=== PATIENT | female | born 1950 ===

== ENCOUNTER 2016-04-06 05:46 | Day surgery (SDC) | payer MEDICARE, OTHER ==
[~2016-04-06] VITALS: Ht 160 cm; Wt 77.8 kg
[~2016-04-06 05:46] MED LIST: Lactated Ringer's 1,000 ML IV ONE; MULT-1018 PO; melatonin
[2016-04-06] MEDS ORDERED: Propofol 10,000 mCg/mL 20 mL Inj ONE (05:47)
[2016-04-06] MEDS ORDERED: Dexamethasone 4 mg/mL Inj ONE (05:47)
[2016-04-06] MEDS ORDERED: Ondansetron 2 mg/mL 2 mL Inj ONE (05:47)
[2016-04-06] MEDS ORDERED: fentaNYL-PF 50 mCg/mL 2 mL Inj ONE (05:47)
[2016-04-06] MEDS ORDERED: IBUP200C PO (05:59)
[2016-04-06] MEDS ORDERED: Vancomycin Inj 1,000 MG in IV Premix 1 EACH IV ONE (06:00)
[2016-04-06] MEDS ORDERED: CeFAZolin Inj 2 GM in IV Premix 1 EACH IV ONE (06:00)
[2016-04-06 06:15] VITALS: BP 139/68; PULSE 74; RESP 18; O2SAT 97
[2016-04-06] MEDS ORDERED: Lactated Ringer's 1,000 ML IV SCH (07:22)
[2016-04-06] MEDS ORDERED: Lactated Ringer's 500 ML IV PRN (07:22)
--- NOTE | 2016-04-06 07:22 | PCM.HPANE ---
Patient Data Date of Service: Apr 06, 2016 (0720) Surgeon Admitting Provider: Attending Provider:Ricky Hernández DO Primary Care Physician:Jackie Winn Other Provider:Heydi Barrientos Anesthesia Reason for Visit Right Knee Arthritis Ht/WT & BMI Height (Feet): 5 Height (Inches): 3.00 Weight (Kilograms): 77.8 Body Mass Index 30.00 Allergies Coded Allergies: Penicillins (Verified Allergy, Unknown, rash, 04/01/16) Sulfa (Sulfonamide Antibiotics) (Verified Allergy, Unknown, rash, 04/01/16) ciprofloxacin (Verified Allergy, Unknown, rash, 04/01/16) Past Anesthesia History Anesthesia History: Denies:: Abnormal Airway, Anesthesia Reactions, Difficult Intubation, Fam Anesthesia Reaction Diabetes History Hx Diabetes?: No MRSA MRSA: No Medications Hypertension Medication: No Home Meds Incl Beta Brigido: No Date Beta Brigido Taken: Reported Medications Ibuprofen 200 Mg [id number] Mg PO QID PRN For Pain Ref 2 04/06/16 [melatonin] No Conflict CheckUnknown Dose DAILY 04/01/16 Multivitamin (Multi Vitamin Daily)1 Each Tablet1 Each PO DAILY 30 Days Ref 0 04/01/16 History History of ENT Problems?: Yes HEENT History: Positive for:: Sinus Problem (seasonal, environmental allergies ) Denies:: Abnormal Airway Cataracts Difficult Intubation Dysphagia Glaucoma Hearing Problem TMJ Hx of Heart Problems?: No Cardiovascular History: Denies:: AICD Abdominal Aortic Aneurism Atrial Fibrillation Cardiac Surgery Chest Pain Congestive Heart Failure Coronary Artery Disease Edema Heart Murmur Hypertension Irregular Heartbeat Pacemaker Valvular Heart Disease Hx of Respiratory Problem?: No Respiratory History: Denies:: Asthma COPD Cough Emphysema Hemoptysis Oxygen Administration Pneumonia Tuberculosis Use of C-PAP Machine Use of Inhalers / NEBS Hx Neurologic Problems?: No Neurological History: Denies:: Alzheimer's Disease CVA Dementia Dizziness Headaches Multiple Sclerosis Parkinson's Disease Seizures Hx of GI Problems?: No Gastrointestinal History: Denies:: Cirrhosis Diverticulitis Gall Bladder Disease Gastroesphageal Reflux Gastrointestinal Bleeding Heartburn Hepatitis Hiatal Hernia Liver Disease Rectal Bleeding Hx of Problems?: No Genitourinary History: Denies:: Kidney Stones Urinary Tract Infection Female Hx: Denies:: Currently Problems with Breasts? Skin History: Denies:: History Skin Disorders? Pressure Ulcers Hx Musculoskeletal Problems?: Yes Musculoskeletal History: Positive for:: Musculoskeletal Trauma (right knee current admission problem) Osteoarthritis Denies:: Back Injury Fibromyalgia Joint Replacement Systemic Lupus Hx of Psycho/Social Problems?: No Psycho Social History: Denies:: Anxiety Hx Depression Hx Surgeries?: Yes (bilateral bunion) Hx Any Other Health Problems?: Yes Other History: Denies:: Cancer Thyroid Disease History Blood Transfusions: Positive for:: Accept Blood Products? Denies:: Blood Transfusions Hx Diabetes: No Hx Alcohol Use: NoHx Substance Use: NoHave You Smoked inLast 12 mo: No Stop/Bang S-Snoring: Do You Snore Loudly: No T-Tired: feel tired, fatigued: Yes O-Obsered: Observed not breath: No P-Blood Pressure: treated: No B- Body Mass Index > 35 kg/m2: No A- Age over 50: Yes N- Neck Large Circumference: No G- Gender Male: No CRISTIAN Total Score: 2 CRISTIAN Risk Assessment: Low Risk, <3 Yes Risk Assessment Category Category 1A: Patient has history of documented sleep apnea, and HAS NOT received any narcotic, sedative or anesthesia administration during this stay. Category 1B: Patient has history of documented sleep apnea, and HAS received any narcotic , sedative or anesthesia administration during this stay Category 2: Patient has SUSPECTED Obstructive Sleep Apnea, and HAS received any narcotic , sedative or anesthesia administration during this stay. Category 3: Patient has SUSPECTED Obstructive Sleep Apnea and HAS NOT received narcotic, sedative or anesthesia administration during this stay. Category 4: Outpatient in Procedural Areas with known sleep apnea or who screen positive for High Risk via the STOP/BANG questionnaire. Exam Exam Vital Signs Vital Signs Date Time Temp Pulse Resp B/P Pulse Ox O2 Delivery O2 Flow Rate FiO2 04/06/16 06:15 36.1 74 18 139/68 97 Room Air General Appearance: Alert, Oriented X3 HEENT/AIRWAY: MP 2 Lungs: Clear to Auscultation Heart: Exam Unremarkable Meds/Labs/Diagnostics Admission Meds Current Medications Vancomycin/0.9 % Sod Chloride 1000 mg/Premix 200 ml @ 133.333 mls/hr ONCE ONCE IV Last administered on 04/06/16t 06:15; Start 04/06/16 at 06:00; Stop at 07:29 Lactated Ringer's (Lr) 1,000 ml @ 120 mls/hr Q8H20M ONCE IV Last administered on 04/06/16t 05:55; Start 04/06/16 at 05:00; Stop 04/06/16 at 13:19 Plan Impression Patient chart reviewed, patient interviewed and anesthestic plan with risks, benefits, and alternatives discussed, and informed consent obtained. NPO Status: tea at 7pm ASA Physical Status: ASA2 Mod Systemic Disease Anesthetic Plan: GA Bene/Risks/Altern/Consents: Yes HP Complete Prior to Induction: Yes Shiv Sun MD Apr 06, 2016 07:22
[2016-04-06] MEDS ORDERED: Phenylephrine 10,000 mCg/mL Inj IVPUSH PRN (07:25)
[2016-04-06] MEDS ORDERED: EPHEDrine Sulfate 50 mg/mL Inj IVPUSH PRN (07:25)
[2016-04-06] MEDS ORDERED: MetoCLOpramide 5 mg/mL 2 mL Inj IVPUSH PRN (07:25)
[2016-04-06] MEDS ORDERED: Dexamethasone 4 mg/mL Inj IVPUSH PRN (07:25)
[2016-04-06] MEDS ORDERED: Ondansetron 2 mg/mL 2 mL Inj IVPUSH PRN (07:25)
[2016-04-06] MEDS ORDERED: Bupivacaine Liposome 1.3% 20 mL Inj ONE (08:01)
[2016-04-06] MEDS ORDERED: Lactated Ringer's 1,000 ML IV ONE (08:45)
[2016-04-06] MEDS ORDERED: Ropivacaine-PF 0.5% 30 mL Inj ARTICULAR ONE (08:58)
[2016-04-06] MEDS ORDERED: Bupivacaine Liposome 1.3% 20 mL Inj INFILTRATE ONE (09:51)
[2016-04-06 10:13] VITALS: BP 120/92; PULSE 74; RESP 8; O2SAT 100
--- NOTE | 2016-04-06 10:14 | PCM.ANEP1 ---
Post Anesthesia Phase 1 PACU Phase 1 Assessment Date of Service: Apr 06, 2016 (0720) Vital Signs 120/92, 78, 100%, 16, 36.6 Vital Signs Date Time Temp Pulse Resp B/P Pulse Ox O2 Delivery O2 Flow Rate FiO2 04/06/16 06:15 36.1 74 18 139/68 97 Room Air Anesthetic Administered: GA Level of Alertness: Awake, talking MCLAIN's with Equal Strength: Yes Pain: No Nausea or Vomiting: No Oxygen Delivery: Simple Mask Lungs: Clear to Auscultation Dermatome Level: Full Sensation Summary uneventful GA Shiv Sun MD Apr 06, 2016 10:13
--- NOTE | 2016-04-06 10:14 | PCM.ANEP2 ---
Post Anesthesia Evaluation ASA/CMS Post Anesthesia VS in Patient's Normal Range?: Yes Resp Stable; Airway Patent?: Yes CV Function & Hydration Stable: Yes Mental Status Recovered?: Yes Pain control Satisfactory?: Yes N/V Control Satisfactory?: Yes Shiv Sun MD Apr 06, 2016 10:14
[2016-04-06 10:20] VITALS: BP 120/73; PULSE 76; RESP 8; O2SAT 100
[2016-04-06 10:25] VITALS: BP 112/66; PULSE 68; RESP 8; O2SAT 100
[2016-04-06] MEDS ORDERED: Acetaminophen IV 1,000 MG in IV Premix 1 EACH IV PRN (10:25)
[2016-04-06] MEDS ORDERED: hydrOXYzine Pamoate 25 mg Capsule PO PRN (10:25)
[2016-04-06] MEDS ORDERED: Ketorolac 15 mg/mL Inj IVPUSH ONE (10:25)
[2016-04-06] MEDS ORDERED: HYDROcodone-APAP 7.5-325 mg Tablet PO PRN (10:25)
[2016-04-06] MEDS: HYDROmorphone 1 mg/mL Inj IVPUSH PRN ×2 (10:40→10:57)
[2016-04-06] MEDS: fentaNYL-PF 50 mCg/mL 2 mL Inj IVPUSH PRN ×2 (10:40→10:51)
--- NOTE | 2016-04-06 11:18 | DRSVH ---
PROCEDURE: X-RAY RIGHT KNEE, ONE OR TWO VIEWS ([id number]) INDICATIONS: POSTOP RIGHT MEDIAL UNI KNEE TECHNIQUE: 2 view(s) of the knee acquired. COMPARISON: [facility], , XR KNEE BILATERAL STANDING UP, 01/15/2016, 7:50. FINDINGS: Bones: Patient is status post knee joint arthroplasty. Hardware components are in expected position s. Visualized bony structures are intact. Soft tissues: Overlying postoperative changes are noted. IMPRESSION: Expected appearance and alignment status post placement of medial right knee unicondylar arthroplasty. Dictated by: Rashard COLLINS Interpreted: Leydi Wilburn MD on 04/06/2016 at 11:17 Transcribed by: GRAHAM on 04/06/2016 at 11:17 Approved by: Leydi Wilburn MD, PhD on 04/06/2016 at 11:47
[2016-04-06 11:20] VITALS: BP 132/66; PULSE 64; RESP 10; O2SAT 97
[2016-04-06 13:01] VITALS: BP 131/63; PULSE 79; RESP 14; O2SAT 98
--- NOTE | 2016-04-06 13:59 | NUR ---
Evaluation completed. Please go to "Notes" then click on "Assessments and Notes" (bottom left corner of screen). Then select appropriate discipline tab on top of screen.
--- NOTE | 2016-04-06 23:05 | OP ---
[address] [address] OPERATIVE REPORT PATIENT: JULIANA CALVILLO : 1950 MR#: [id number] ADMIT: 04/06/2016 JOB ID: [id number] DATE OF SURGERY: 04/06/2016 PREOPERATIVE DIAGNOSIS(ES): Right knee medial compartment degenerative joint disease. POSTOPERATIVE DIAGNOSIS(ES): Right knee medial compartment degenerative joint disease. PROCEDURE: Right knee medial compartment arthroplasty. SURGEON: Ricky Hernández DO. INCIDENT RESPONSE SPECIALIST: Vicki King PA-C. INDICATIONS: The patient is a 66-year-old female with right knee medial compartment degenerative arthritis who had failed conservative measures and wished to proceed with a right medial compartment arthroplasty. We discussed risks, benefits and possible complications of surgery. All questions were answered. She wished to proceed. PROCEDURE IN DETAIL: The patient is brought to the operating room. She was given a preoperative antibiotic and general anesthetic. The right lower extremity was sterilely prepped and draped. A tourniquet was used for hemostasis. An incision was made over the medial aspect of the knee from the patella toward the tibial tubercle. Dissection was carefully carried through the subcutaneous tissue. Electrocautery was used for hemostasis. A small portion of fat pad was removed and retractors were placed. Small anterior boss of tibia was resected and the extramedullary guide for the tibia and the femur was inserted and made parallel to the long axis of the tibia in the AP and medial lateral planes. Using standard resection and 5 degree slope this was pinned into position and the distal femoral cut was performed. The knee was then taken to flexion and the tibial cut was performed. Then, the vertical tibial cut was performed with a reciprocating saw. The femoral and tibial cut wafers were then removed and the femur was sized, felt to be a size A. The block was pinned into position and the pegs were drilled for. The distal femoral cuts were performed and the pins were then removed. Next, the knee was trialed with the tibia which the B seemed to fit quite nicely in AP and medial lateral planes, and this was impacted into position along with the A femur trial. The lugs for the tibia were then drilled and a trial was performed. Had excellent range of motion with equal gaps in both flexion and extension, and I felt that it worked quite nicely with the 10 mm thickness poly. The excess osteophytes were removed. The bony surfaces were washed and dried, and the components were then cemented into position beginning with the [employer] ZUK size 2 medial tibial tray, followed by the ZUK size A femoral component. All excess cement was removed and a poly was inserted and the knee was held in extension while the cement was allowed to polymerize. Then, the poly was removed. All excess cement was removed. We again trialed and elected to use a size 10 thickness E poly which was impacted into position. The tourniquet was let down. Electrocautery was used for hemostasis. The wound was irrigated and combination of Exparel and ropivacaine with saline was injected into the posterior knee, as well as all about the capsule and the subcu. The wounds were then closed with #1 Surgilon and 0 Vicryl to close the medial retinaculum. The subcu was closed with 2-0 and 3-0 Vicryl. The skin was closed with a running 3-0 V-Loc suture and sterile dressings were applied. Patient tolerated the procedure well. Blood loss was 25 cc. POSTOPERATIVE PROTOCOL: Have the patient weightbear to tolerance. I would like her to use walker or cane for ambulation, and ice and elevate. Follow up in two weeks or sooner if needed. She should be using aspirin 325 twice daily for DVT prophylaxis. Also, surgical device sales representative was required for the successful completion of this procedure.
== END 2016-04-06 23:59 | disposition home or self-care (01) ==
LOC: SAS 05:46
PROVIDERS: ATTEND Orthopaedic Surgery
DX: M17.11 Unilateral primary osteoarthritis, right knee (principal)
CPT/HCPCS: 27446; 73560; 97161; C1713; C1776; G8978; G8979; G8980; J0690; J1100; J1170; J2250; J2405; J2795; J3010; J3370; J7120; Q0177